=== PATIENT | female | born 1995 | race Caucasian/White ===

== ENCOUNTER → 2016-12-10 | Outpatient (CLI) | payer OTHER ==
[~2016-12-10] MED LIST: ETHY1TAB2 PO; FLUC150T PO; IOHEXOL 350 MG/ML 10 ML VIAL (for RAD DIAG) IV ONE; KETO10 PO; METR.75%V VAGINAL; METR0.7512 VAGINAL; METR500T10 PO; OMEP40CA2 PO
--- NOTE | 2016-12-10 20:23 | RADRPT ---
EXAM DATE/TIME: 12/10/2016 13:52 [facility] COMPARISON: CT ABDOMEN & PELVIS W CONTRAST, December 14, 2015, 18:40. INDICATIONS : Abdomen pain for 3 months now. IV CONTRAST: 75 cc Omnipaque 350 (iohexol) IV ORAL CONTRAST: Partial prescribed oral contrast ingested. RADIATION DOSE: 5.09 CTDIvol (mGy) MEDICAL HISTORY : None SURGICAL HISTORY : None. ENCOUNTER: Initial ACUITY: 1 day PAIN SCALE: 4/10 LOCATION: Right flank lower right quadrant pain TECHNIQUE: Volumetric scanning of the abdomen and pelvis was performed. Using automated exposure control and ad justment of the mA and/or kV according to patient size, radiation dose was kept as low as reasonably achievable to obtain optimal diagnostic quality images. FINDINGS: LOWER LUNGS: The visualized lower lungs are clear. LIVER: Homogeneous density without lesion. There is no dilation of the biliary tree. No calcified gallston es. SPLEEN: Normal size without lesion. PANCREAS: Within normal limits. KIDNEYS: Normal in size and shape. There is no mass, stone or hydronephrosis. 2 mm calculus lower pole left k idney. ADRENAL GLANDS: Within normal limits. VASCULAR: There is no aortic aneurysm. BOWEL/MESENTERY: The stomach, small bowel, and colon demonstrate no acute abnormality. There is no free intraperitone al air or fluid. ABDOMINAL WALL: Within normal limits. RETROPERITONEUM: There is no lymphadenopathy. BLADDER: No wall thickening or mass. REPRODUCTIVE: Within normal limits. INGUINAL: There is no lymphadenopathy or hernia. MUSCULOSKELETAL: Within normal limits for patient age. CONCLUSION: No acute inflammatory process. Nonobstructing lower pole left renal calculus, unchanged. Wilmar Colon MD on December 10, 2016 at 20:18 Board Certified Radiologist. This report was verified electronically.
== END ==
LOC: HRAD 12:02
PROVIDERS: ATTEND Family Medicine
DX: R10.9 Unspecified abdominal pain (principal)
CPT/HCPCS: 74177; Q9967

== ENCOUNTER 2017-01-20 11:14 | Emergency (ER) | payer OTHER ==
[~2017-01-20] VITALS: Ht 162.6 cm; Wt 60.0 kg
[~2017-01-20 11:14] MED LIST changes: -ETHY1TAB2 PO; -FLUC150T PO; -IOHEXOL 350 MG/ML 10 ML VIAL (for RAD DIAG) IV ONE; -KETO10 PO; -METR.75%V VAGINAL; -METR500T10 PO; -OMEP40CA2 PO
[2017-01-20 11:16] VITALS: BP 141/80; PULSE 66; RESP 14; TEMP 98.2; O2SAT 99
--- NOTE | 2017-01-20 11:35 | PD ---
Physical Exam Time Seen by Provider: 11:33 Narrative 21to F c/o R sided abd pain x 1 year. Says its her gallbladder and has had multiple tests done and wants it taken care of. Denies N, V, D, fever. Patient seen in triage. VS reviewed. Patient awaiting bed placement. Data Data Last Documented VS Vital Signs Date Time Temp Pulse Resp B/P Pulse Ox O2 Delivery O2 Flow Rate FiO2 01/20/17 11:16 98.2 66 14 141/80 99 MDM Supervised Visit with THERESE: Kadie Gómez Jan 20, 2017 11:35
--- NOTE | 2017-01-20 12:54 | PD ---
HPI Chief Complaint: Abdominal Pain Time Seen by Provider: 12:52 Travel History International Travel<30 days: No Contact w/Intl Traveler<30days: No Traveled to known affect area: No History of Present Illness HPI Patient comes in complaining of right upper quadrant abdominal pain ongoing for the past year. Patient reports pain is intermittently but continues to get worse. Patient describes pain as a sharp stabbing pain that occurs primarily after eating any food at all. Patient states she was told to lose weight as this would help with her fatty liver and patient reports she has lost 30 pounds but still continues to have the pain. Patient also has concerns over possible obstructing kidney stone noted on previous CAT scan she is not and able to follow up with yet. Patient did try to get a HIDA scan outpatient but due to shortage of contrast dye patient has been unable to complete this. Patient was previously seen a GI doctor but reports continued symptoms. Patient has never seen a general surgeon for this. She denies any loss change in bowel or bladder. Denies any chest pain, shortness of breath, fevers, nausea, vomiting, or . PFSH Past Medical History Medical History: Denies Significant Hx Musculoskeletal: Yes (COMPRESSION FX SPINE) Immunizations Current: Yes Tetanus Vaccination: < 5 Years Influenza Vaccination: No ?: Not LMP: 01/03/17 Social History Alcohol Use: No Tobacco Use: No Substance Use: Yes (marijuana daily ) Allergies-Medications (Allergen,Severity, Reaction): Coded Allergies: No Known Allergies (Verified , 01/20/17) Reported Meds & Prescriptions Reported Meds & Active Scripts Active Metronidazole Vaginal Gel 0.75 % Gel 1 Appl VAGINAL HS Review of Systems Except as stated in HPI: all other systems reviewed are Neg Physical Exam Narrative GENERAL: Well-developed, well nourished, in no acute distress, and non-ill appearing. SKIN: Focused skin assessment warm and dry. HEAD: Atraumatic. Normocephalic. EYES: Pupils equal and round. EOMI. No scleral icterus. No injection or drainage. ENT: No nasal bleeding or discharge. Mucous membranes pink and moist. NECK: Trachea midline. No JVD. Supple. No nuclear rigidity. CARDIOVASCULAR: Regular rate and rhythm. No murmur appreciated. RESPIRATORY: No accessory muscle use. No respiratory distress. Clear to auscultation. Breath sounds equal bilaterally. GASTROINTESTINAL: Abdomen soft, non-tender, nondistended. Hepatic and splenic margins not palpable. Normal bowel sounds 4. No pulsatile mass. No CVA tenderness. MUSCULOSKELETAL: No obvious deformities. No clubbing. No cyanosis. No edema. Full range of motion. NEUROLOGICAL: Awake and alert. No obvious cranial nerve deficits. Motor grossly within normal limits. Normal speech. PSYCHIATRIC: Appropriate mood and affect; insight and judgment normal. Data Data Last Documented VS Vital Signs Date Time Temp Pulse Resp B/P Pulse Ox O2 Delivery O2 Flow Rate FiO2 01/20/17 14:54 59 17 108/61 100 Room Air 01/20/17 11:16 98.2 Orders Complete Blood Count With Diff (01/20/17 12:51) Comprehensive Metabolic Panel (01/20/17 12:51) Lipase (01/20/17 12:51) Urinalysis - C+S If Indicated (01/20/17 12:51) Ct Abd/Pel W/O Iv Contrast (01/20/17 12:51) Iv Access Insert/Monitor (01/20/17 12:51) Ecg Monitoring (01/20/17 12:51) Oximetry (01/20/17 12:51) Sodium Chloride 0.9% Flush (Ns Flush) (01/20/17 13:00) Ed Urine Pregnancytest Poc (01/20/17 12:51) Us Abdomen Gallbladder (01/20/17 13:25) Labs Laboratory Tests Test 01/20/17 13:00 White Blood Count 7.6 TH/MM3 Red Blood Count 4.64 MIL/MM3 Hemoglobin 14.0 GM/DL Hematocrit 40.4 % Mean Corpuscular Volume 87.2 FL Mean Corpuscular Hemoglobin 30.1 PG Mean Corpuscular Hemoglobin 34.5 % Concent Red Cell Distribution Width 13.3 % Platelet Count 290 TH/MM3 Mean Platelet Volume 8.9 FL Neutrophils (%) (Auto) 58.5 % Lymphocytes (%) (Auto) 33.3 % Monocytes (%) (Auto) 6.3 % Eosinophils (%) (Auto) 1.3 % Basophils (%) (Auto) 0.6 % Neutrophils # (Auto) 4.4 TH/MM3 Lymphocytes # (Auto) 2.5 TH/MM3 Monocytes # (Auto) 0.5 TH/MM3 Eosinophils # (Auto) 0.1 TH/MM3 Basophils # (Auto) 0.0 TH/MM3 CBC Comment DIFF FINAL Differential Comment Urine Color YELLOW Urine Turbidity CLEAR Urine pH 7.0 Urine Specific Dawson 1.019 Urine Protein NEG mg/dL Urine Glucose (UA) NEG mg/dL Urine Ketones NEG mg/dL Urine Occult Blood TRACE Urine Nitrite NEG Urine Bilirubin NEG Urine Urobilinogen LESS THAN 2.0 MG/DL Urine Leukocyte Esterase NEG Urine RBC 8 /hpf Urine WBC 1 /hpf Urine Squamous Epithelial <1 /hpf Cells Urine Bacteria RARE /hpf Urine Mucus FEW /lpf Microscopic Urinalysis Comment CULT NOT INDICATED Sodium Level 142 MEQ/L Potassium Level 4.0 MEQ/L Chloride Level 106 MEQ/L Carbon Dioxide Level 28.6 MEQ/L Anion Gap 7 MEQ/L Blood Urea Nitrogen 12 MG/DL Creatinine 0.85 MG/DL Estimat Glomerular Filtration 85 ML/MIN Rate Random Glucose 100 MG/DL Calcium Level 9.5 MG/DL Total Bilirubin 0.3 MG/DL Aspartate Amino Transf 16 U/L (AST/SGOT) Alanine Aminotransferase 25 U/L (ALT/SGPT) Alkaline Phosphatase 61 U/L Total Protein 7.7 GM/DL Albumin 4.1 GM/DL Lipase 185 U/L [facility] Medical Decision Making Medical Screen Exam Complete: Yes Emergency Medical Condition: Yes Interpretation(s) Ultrasound revealed radiologist shows: Possible punctate nonobstructing calculi in the right kidney. CT of pelvis for radiologist shows: 1. No abnormality is identified to explain the right flank pain. No acute finding is seen. 2. Stable nonobstructing 3 mm left renal stone. Differential Diagnosis Biliary colic, UTI, obstructive kidney stone, nonobstructive kidney stone, cholelithiasis, cholecystitis, other Narrative Course The patient presented with upper RUQ abdominal pain. There was no significant history of diarrhea and no fever. The patient appeared comfortable, well hydrated and the abdominal exam was fairly unremarkable and minimal to nontender to me. Laboratory evaluation revealed no significant abnormality and sonograghy revealed gallstones but no evidence otherwise for cholecystitis or obstruction. Appears biliary colic possible gastritis. There was no evidence of an acute, surgical abdomen at this time. There was no clinical evidence to support cholecystitis, pancreatitis, perforation of gastric ulcer, colitis, diverticulitis, bacterial peritonitis, obstruction, volvulus, early appendicitis , or hernial incarceration or strangulation at this time. There was no evidence to support vascular pathology such as AAA, mesenteric ischemia, nor significant GIB. There was also no clinical evidence by history, exam or risk factors to suggest atypical presentation of cardiac disease such as ACS, AMI or atypical angina. No evidence to suggest genitourinary etiology as well. During the course of the ED visit, the patient remained asymptomatic. Clinical picture was discussed with the patient, as well as plan of care. The patient was instructed to follow up with primary care physician, GI, and/or surgeon. Abdominal pain warnings were discussed with the patient. The patient is to return if worsens, pain worsens or changes, develop fever, inability to tolerate fluids with or without vomiting, unable to establish follow up or as needed. The patient agrees with plan. Patient in no obvious distress upon re-evaluation. All pertinent laboratory/ Radiology result(s) discussed with patient/family. Discussed patient with Dr. Batista prior to discharge, who is in agreement with plan of care and disposition. Any questions/concerns in reference to patient diagnosis/ condition discussed and clarified prior to patient's discharge. Reinforced sheer importance of close follow up with patient's primary physician or primary care clinic. Instructed patient to return to ED immediately, if symptoms return/ worsen. Pt showed understanding of above instructions. Further instructions and recommendations were detailed in discharge paperwork. Pt ambulated without difficulty out of ED at discharge. Diagnosis Primary Impression: Right upper quadrant pain Additional Impression: Kidney stone on right side Patient Instructions: General Instructions Additional Instructions: Follow-up with your primary care physician, GI, and/or general surgeon for further evaluation of right upper quadrant pain. Follow up with urology regarding nonobstructing kidney stone. Return to the emergency department if symptoms get worse. Disposition: 01 DISCHARGE HOME Condition: Stable Chase Mason Jan 20, 2017 12:54
[2017-01-20] MEDS ORDERED: SODIUM CHLORIDE 0.9% FLUSH 10 ML FLUSH IV FLUSH PRN (13:00)
[2017-01-20 13:19] VITALS: O2SAT 99
[2017-01-20 13:28] LABS: AUTOMATED NEUTROPHIL # 4.4 TH/MM3 (1.8-7.7); BASOPHIL % 0.6 % (0.0-2.0); EOSINOPHIL # 0.1 TH/MM3 (0-0.4); EOSINOPHIL % 1.3 % (0.0-4.0); HEMATOCRIT 40.4 % (35.0-46.0); HEMO FLAGS DIFF FINAL; LYMPH % 33.3 % (9.0-44.0); LYMPHOCYTE # 2.5 TH/MM3 (1.0-4.8); MEAN CELL VOLUME 87.2 FL (80.0-100.0); MEAN CORPUSCULAR HEMOGLOBIN 30.1 PG (27.0-34.0); MEAN CORPUSCULAR HGB CONC 34.5 % (32.0-36.0); MONO % 6.3 % (0.0-8.0); NEUT % 58.5 % (16.0-70.0); PLATELET COUNT 290 TH/MM3 (150-450); RED BLOOD COUNT 4.64 MIL/MM3 (4.00-5.30); RED CELL DISTRIBUTION WIDTH 13.3 % (11.6-17.2); WHITE BLOOD COUNT 7.6 TH/MM3 (4.0-11.0)
[2017-01-20 13:30] LABS: BACTERIA, URINE RARE /hpf; BLOOD, URINE TRACE (NEG); COMMENT (UR) CULT NOT INDICATED; CULTURE IF INDICATED CULT NOT INDICATED; GLUCOSE,URINE NEG (NEG); KETONE, URINE NEG (NEG); MUCUS URINE FEW /lpf (OCC); NITRITE,URINE NEG (NEG); SQUAMOUS EPITHELIAL CELL URINE <1 /hpf (0-5); URINE COLOR YELLOW (YELLW/STRAW)
[2017-01-20 13:45] LABS: ALT (GPT) 25 U/L (9-42); ANION GAP 7 MEQ/L (5-15); AST (GOT) 16 U/L (16-38); BICARBONATE 28.6 MEQ/L (21.0-32.0); BLOOD UREA NITROGEN 12 MG/DL (7-18); CHLORIDE 106 MEQ/L (98-107); GLOMERULAR FILTRATION RATE 85 ML/MIN (>89); SODIUM (NA) 142 MEQ/L (136-145)
[2017-01-20 13:48] LABS: ALKALINE PHOSPHATASE 61 U/L (45-117); TOTAL BILIRUBIN ADULT 0.3 MG/DL (0.2-1.0)
--- NOTE | 2017-01-20 13:53 | RADRPT ---
EXAM DATE/TIME: 01/20/2017 13:14 [facility] COMPARISON: CT ABDOMEN & PELVIS W CONTRAST, December 10, 2016, 13:52. INDICATIONS : Right upper quadrant pain. MEDICAL HISTORY : Compression spine fracture. Substance use. SURGICAL HISTORY : None. ENCOUNTER: Initial ACUITY: > 1 year PAIN SCORE: 8/10 LOCATION: Right upper quadrant MEASUREMENTS: LIVER: 18.1 cm length COMMON DUCT: 2 mm RIGHT KIDNEY: 10.0 x 4.5 x 4.2 cm FINDINGS: LIVER: Normal echotexture without focal lesion or ductal dilatation. COMMON DUCT: No intraluminal mass or stone visualized. GALLBLADDER: Contains no stones, demonstrates no wall thickening or pericholecystic fluid. PANCREAS: The visualized portions are within normal limits. RIGHT KIDNEY: Several punctate echogenic foci identified in the right renal hilum indicating possible nonobstructin g calculi. CONCLUSION: Possible punctate nonobstructing calculi in the right kidney. Montana Watkins MD on January 20, 2017 at 13:50 Board Certified Radiologist. This report was verified electronically.
[2017-01-20 14:54] VITALS: BP 108/61; PULSE 59; RESP 17; O2SAT 100
--- NOTE | 2017-01-20 15:04 | RADRPT ---
EXAM DATE/TIME: 01/20/2017 14:24 [facility] COMPARISON: CT ABDOMEN & PELVIS W CONTRAST, December 10, 2016, 13:52. INDICATIONS : Right flank pain. ORAL CONTRAST: No oral contrast ingested. RADIATION DOSE: 4.24 CTDIvol (mGy) MEDICAL HISTORY : None SURGICAL HISTORY : None. ENCOUNTER: Initial ACUITY: 1 day PAIN SCALE: 5/10 LOCATION: Right flank TECHNIQUE: Volumetric scanning of the abdomen and pelvis was performed. Using automated exposure control and ad justment of the mA and/or kV according to patient size, radiation dose was kept as low as reasonably achievable to obtain optimal diagnostic quality images. FINDINGS: LOWER LUNGS: The visualized lower lungs are clear. LIVER: Homogeneous density without lesion. There is no dilation of the biliary tree. No calcified gallston es. SPLEEN: Normal size without lesion. PANCREAS: Within normal limits. KIDNEYS: Normal in size and shape. There is no mass or hydronephrosis. There is a stable 3 mm nonobstructing left lower pole renal stone. ADRENAL GLANDS: Within normal limits. VASCULAR: There is no aortic aneurysm. BOWEL/MESENTERY: The stomach, small bowel, and colon demonstrate no acute abnormality. There is no free intraperitone al air or fluid. Appendix is normal. ABDOMINAL WALL: Within normal limits. RETROPERITONEUM: There is no lymphadenopathy. BLADDER: No wall thickening or mass. REPRODUCTIVE: Within normal limits. INGUINAL: There is no lymphadenopathy or hernia. MUSCULOSKELETAL: Within normal limits for patient age. CONCLUSION: 1. No abnormality is identified to explain the right flank pain. No acute finding is seen. 2. Stable nonobstructing 3 mm left renal stone. Sravan Pérez MD on January 20, 2017 at 14:59 Board Certified Radiologist. This report was verified electronically.
[2017-02-16] MEDS ORDERED: FLUC150T PO (10:57)
== END 2017-01-20 15:34 | disposition home or self-care (01) ==
LOC: NEPD 11:14
DX: R10.11 Right upper quadrant pain (principal); N20.0 Calculus of kidney; Z87.39 Personal history of other diseases of the musculoskeletal system and connective tissue
CPT/HCPCS: 74176; 76705; 80053; 81001; 83690; 84703; 85025